=== PATIENT | female | born 1995 | race Caucasian/White ===

== ENCOUNTER 2022-06-16 08:02 | Inpatient (IN) ==
[2022-06-16] MEDS: Lactated Ringers 1000 ml BAG 1,000 ML IV SCH ×3 (08:36→15:26)
[2022-06-16 08:45] LABS: Hematocrit 33 % (35-47); Hemoglobin 10.7 g/dL (12.0-16.0); Mean Corpuscular HGB Conc 33 g/dL (31-36); Mean Corpuscular Hemoglobin 29 pg (27-31); Mean Corpuscular Volume 89 fL (80-97); Mean Platelet Volume 7.2 fL (7.4-10.4); Platelet Count 248 10^3/uL (150-450); Red Blood Count 3.67 10^6 /uL (3.70-4.87); Red Cell Distribution Width 13 % (10-15); White Blood Count 10.8 10^3/uL (3.5-10.8)
[2022-06-16] MEDS ORDERED: Buffered Lidocaine 1% SYRIN 1 ml INTRADERM ONE (08:48)
[2022-06-16] MEDS ORDERED: Lactated Ringers 1000 ml BAG 1,000 ML IV ONE ×2 (08:48→12:01)
[2022-06-16 09:02] LABS: Platelet Count 248 10^3/ul (150-450)
[2022-06-16 09:06] LABS: INR 0.91 (0.89-1.11)
[2022-06-16 09:19] LABS: Urine Benzodiazepine Screen None Detected (None Detect); Urine Opiates Screen None Detected (None Detect)
[2022-06-16] MEDS ORDERED: Oxytocin in LR 20,000 MILLI.UNIT/1,000 ML BAG IV SCH (09:45)
[2022-06-16 09:57] LABS: Fibrinogen > 552.0 mg/dL (110.8-404.3)
[2022-06-16] MEDS ORDERED: Penicillin G Potassium IV 5,000,000 UNITS in NS 0.9% 100 ml BAG 100 ML IVPB ONE (10:14)
[2022-06-16 10:18] LABS: ABS Lymphocytes 1.6 10^3/ul (1.0-4.8); ABS Monocytes 0.6 10^3/ul (0-0.8); ABS Neutrophils 8.5 10^3/ul (1.5-7.7); Eosinophil % 0.3 %; Lymphocyte % 14.4 %
[2022-06-16 10:20] LABS: Schistocytes ABSENT
[2022-06-16] MEDS ORDERED: OBEPIDURAL (200 ML) 200 ML EPIDURAL ONE (10:34)
[2022-06-16] MEDS ORDERED: Lidocaine/Epinephrin 1.5%/200 5 ML AMP INJ ONE ×2 (10:34→10:59)
[2022-06-16 11:24] LABS: HIV 4th Generation Nonreactive (Nonreactive)
[2022-06-16] MEDS ORDERED: Ondansetron 4 mg VIAL 2 MG/ML 2 ml VIAL IV PRN (11:26)
[2022-06-16] MEDS ORDERED: Phenylephrine 40 mcg/mL 10mL (400mcg) SYRINGE ONE (11:57)
[2022-06-16] MEDS ORDERED: Sodium Citrate/Citric Acid LIQ 15 ML UDC PO PRN (12:01)
[2022-06-16] MEDS ORDERED: Lactated Ringers 1000 ml BAG 1,000 ML IV SCH ×2 (13:00→17:00)
[2022-06-16] MEDS ORDERED: OBEPIDURAL (200 ML) 200 ML EPIDURAL SCH (13:00)
[2022-06-16 13:04] LABS: Hematocrit 29 % (35-47); Hemoglobin 9.6 g/dL (12.0-16.0); Mean Corpuscular HGB Conc 33 g/dL (31-36); Mean Corpuscular Hemoglobin 29 pg (27-31); Mean Corpuscular Volume 88 fL (80-97); Mean Platelet Volume 6.8 fL (7.4-10.4); Platelet Count 224 10^3/uL (150-450); Red Blood Count 3.34 10^6 /uL (3.70-4.87); Red Cell Distribution Width 13 % (10-15); White Blood Count 11.9 10^3/uL (3.5-10.8)
[2022-06-16 13:15] LABS: Urine Appearance Clear; Urine Bilirubin Negative (Negative); Urine Blood Negative (Negative); Urine Color Yellow; Urine Glucose Negative (Negative); Urine Ketones 2+ (Negative); Urine Nitrite Negative (Negative); Urine Protein Negative (Negative); Urine Specific Gravity 1.016 (1.002-1.030); Urine Urobilinogen Negative (Negative)
[2022-06-16 13:25] LABS: Activated Partial Thrombo Time 25.7 seconds (26.0-38.0); Fibrinogen 478.2 mg/dL (110.8-404.3); INR 0.95 (0.89-1.11)
[2022-06-16 14:13] LABS: ABS Monocytes 0.5 10^3/ul (0-0.8); ABS Neutrophils 10.3 10^3/ul (1.5-7.7); Lymphocyte % 8.5 %
[2022-06-16 14:16] LABS: RBC Morphology Normal (Normal); Schistocytes ABSENT
[2022-06-16 14:17] LABS: Platelet Count 224 10^3/ul (150-450)
[2022-06-16] MEDS ORDERED: Penicillin G Potassium IV 3,000,000 UNITS in NS 0.9% 100 ml BAG 100 ML IVPB SCH (15:30)
[2022-06-16] MEDS ORDERED: fentaNYL 100 mcg/2 ml 50 MCG/ML VIAL ONE ×2 (15:44→16:28)
[2022-06-16] MEDS ORDERED: Bupivacaine-MPF SPINAL 7.5 MG/ML - 2ML AMP ONE (15:46)
[2022-06-16] MEDS ORDERED: Sodium Chloride 0.9% 10 ML ONE (15:46)
[2022-06-16] MEDS ORDERED: Butalb/Acetamin/Caff TAB 325-50-40MG PO PRN (16:44)
[2022-06-16] MEDS ORDERED: Witch Hazel PAD JAR TOPICAL PRN (16:49)
[2022-06-16] MEDS ORDERED: Dibucaine 1% OINT 28.35 GM TUBE PR PRN (16:49)
[2022-06-17 07:33] LABS: ABS Basophils 0.1 10^3/ul (0-0.2); ABS Lymphocytes 1.7 10^3/ul (1.0-4.8); ABS Neutrophils 10.1 10^3/ul (1.5-7.7); Eosinophil % 0.2 %; Hematocrit 29 % (35-47); Hemoglobin 9.7 g/dL (12.0-16.0); Lymphocyte % 13.5 %; Mean Corpuscular HGB Conc 33 g/dL (31-36); Mean Corpuscular Hemoglobin 29 pg (27-31); Mean Corpuscular Volume 88 fL (80-97); Mean Platelet Volume 6.9 fL (7.4-10.4); Platelet Count 246 10^3/uL (150-450); Red Blood Count 3.29 10^6 /uL (3.70-4.87); Red Cell Distribution Width 13 % (10-15)
[2022-06-17] MEDS ORDERED: Influenza vaccine *QUAD* *2022-23* 0.5 ML SYRINGE IM ONE (10:00)
[2022-06-18] MEDS ORDERED: fentaNYL 100 mcg/2 ml 50 MCG/ML VIAL ONE (09:28)
[2022-06-18 11:19] VITALS: BP 114/63
== END 2022-06-18 13:40 | disposition home or self-care (01) | DRG 560 ==
LOC: MCHOBOUT 08:02 → MCHOB 08:23
PROVIDERS: ADMIT Midwife; ATTEND Midwife